=== PATIENT | female | born 1945 | race Caucasian/White ===

== ENCOUNTER 2018-01-22 08:15 | Outpatient (CLI) | payer OTHER ==
[~2018-01-22 08:15] MED LIST: CLOP75TA35 PO; ESTR0.6261 PO; PANT40TA39 PO; RANI300T7 PO
[2018-01-22 08:58] LABS: BASOPHILS % (AUTO) 0.2 % (0-1); EOSINOPHILS # (AUTO) 0.2 X10'3 (0-0.9); HEMATOCRIT 38.4 % (35.0-45.0); HEMOGLOBIN 12.9 g/dl (12.0-16.0); LYMPHOCYTES # (AUTO) 1.2 X10'3 (1.1-4.8); LYMPHOCYTES % (AUTO) 15.3 % (21-51); MEAN CORPUSCULAR HEMOGLOBIN 29.7 PG (27.0-31.0); MEAN CORPUSCULAR HGB CONC 33.7 % (33.0-36.5); MEAN CORPUSCULAR VOLUME 88.1 FL (78-98); MEAN PLATELET VOLUME 8.4 FL (7.4-10.4); MONOCYTES # (AUTO) 0.7 X10'3 (0-0.9); MONOCYTES % (AUTO) 8.9 % (2-12); NEUTROPHILS # (AUTO) 5.8 X10'3 (1.8-7.7); NEUTROPHILS % (AUTO) 72.6 % (42-75); PLATELET COUNT 298 X10'3 (140-440); RED BLOOD COUNT 4.36 X10'6 (4.20-5.60); RED CELL DISTRIBUTION WIDTH 13.7 % (11.5-14.5)
[2018-01-22 09:21] LABS: ALANINE AMINOTRANSFERASE 23 U/L (12-78); ALBUMIN 3.7 G/DL (3.4-5.0); ALBUMIN/GLOBULIN RATIO 1.1 (1.1-1.5); ALKALINE PHOSPHATASE 92 IU/L (46-116); ANION GAP 9 (8-16); ASPARTATE AMINO TRANSFERASE 22 U/L (10-37); BILIRUBIN,TOTAL 0.5 MG/DL (0.1-1.0); BLOOD UREA NITROGEN 16 MG/DL (7-18); BUN/CREATININE RATIO 21.9 (6.6-38.0); CHLORIDE 101 MMOL/L (99-107); CHOL/HDL RATIO 2.5 (0.00-4.99); CHOLESTEROL 228 MG/DL (0-200); CREATININE 0.73 MG/DL (0.40-0.90); GLUCOSE 90 MG/DL (70-104); HDL CHOLESTEROL 91 MG/DL (35-60); LDL CHOLESTEROL 112 MG/DL (50-100); SODIUM 139 MMOL/L (135-145); TOTAL CARBON DIOXIDE 28.7 MMOL/L (24-32); TOTAL PROTEIN 7.1 G/DL (6.4-8.2); TRIGLYCERIDES 115 MG/DL (20-135); eGFR 79 ML/MIN
== END 2018-01-22 23:59 | disposition home or self-care (01) ==
LOC: LAB 08:15
PROVIDERS: ATTEND Nurse Practitioner Family
DX: Z00.01 Encounter for general adult medical examination with abnormal findings (principal); J44.9 Chronic obstructive pulmonary disease, unspecified; R79.89 Other specified abnormal findings of blood chemistry
CPT/HCPCS: 36415; 80053; 80061; 84436; 84443; 85025

== ENCOUNTER 2019-06-09 09:42 | Outpatient (CLI) | payer OTHER | END 2019-06-09 23:59 | disposition home or self-care (01) | LOC: VAS 09:42 | PROVIDERS: ATTEND Family Medicine | DX: I65.23 Occlusion and stenosis of bilateral carotid arteries (principal); I77.3 Arterial fibromuscular dysplasia; J44.9 Chronic obstructive pulmonary disease, unspecified; Z82.49 Family history of ischemic heart disease and other diseases of the circulatory system | CPT/HCPCS: 93880; 93975; 93978 ==

== ENCOUNTER 2020-03-17 14:53 | Outpatient (CLI) | payer BC ==
[2020-03-17 15:59] LABS: BASOPHILS % (AUTO) 0.3 % (0-1); EOSINOPHILS # (AUTO) 0.3 X10'3 (0-0.9); EOSINOPHILS % (AUTO) 2.9 % (0-6); HEMATOCRIT 35.9 % (35.0-45.0); LYMPHOCYTES # (AUTO) 1.5 X10'3 (1.1-4.8); LYMPHOCYTES % (AUTO) 15.4 % (21-51); MEAN CORPUSCULAR HEMOGLOBIN 30.1 PG (27.0-31.0); MEAN CORPUSCULAR HGB CONC 33.3 g/dL (33.0-36.5); MEAN CORPUSCULAR VOLUME 90.5 FL (78-98); MEAN PLATELET VOLUME 8.3 FL (7.4-10.4); MONOCYTES # (AUTO) 0.9 X10'3 (0-0.9); MONOCYTES % (AUTO) 9.1 % (2-12); NEUTROPHILS # (AUTO) 7.1 X10'3 (1.8-7.7); NEUTROPHILS % (AUTO) 72.3 % (42-75); PLATELET COUNT 290 X10'3 (140-440); RED BLOOD COUNT 3.97 X10'6 (4.20-5.60); RED CELL DISTRIBUTION WIDTH 13.8 % (11.5-14.5); WHITE BLOOD COUNT 9.8 X10'3 (4.5-11.0)
[2020-03-17 16:45] LABS: ALANINE AMINOTRANSFERASE 16 U/L (12-78); ALBUMIN 3.3 G/DL (3.4-5.0); ALKALINE PHOSPHATASE 94 IU/L (46-116); ANION GAP 6 (8-16); ASPARTATE AMINO TRANSFERASE 20 U/L (10-37); BILIRUBIN,TOTAL 0.3 MG/DL (0.1-1.0); BLOOD UREA NITROGEN 14 MG/DL (7-18); BUN/CREATININE RATIO 17.1 (6.6-38.0); C-REACTIVE PROTEIN 1.35 MG/DL (0.0-0.5); CALCIUM 8.8 MG/DL (8.5-10.1); CHLORIDE 100 MMOL/L (99-107); CHOL/HDL RATIO 2.3 (0.00-4.99); CHOLESTEROL 195 MG/DL (0-200); CREATININE 0.82 MG/DL (0.40-0.90); GLUCOSE 88 MG/DL (70-104); HDL CHOLESTEROL 83 MG/DL (35-60); LDL CHOLESTEROL 89 MG/DL (50-100); POTASSIUM 4.5 MMOL/L (3.5-5.1); SODIUM 136 MMOL/L (135-145); TOTAL CARBON DIOXIDE 30.5 MMOL/L (24-32); TOTAL PROTEIN 6.6 G/DL (6.4-8.2); TRIGLYCERIDES 89 MG/DL (20-135); eGFR 69 ML/MIN
== END 2020-03-17 23:59 | disposition home or self-care (01) ==
LOC: RAD 14:53
PROVIDERS: ATTEND Family Medicine
DX: M10.9 Gout, unspecified (principal)
CPT/HCPCS: 36415; 73620; 80053; 80061; 84550; 85025; 85651; 86140

== ENCOUNTER 2020-10-25 08:38 | Day surgery (SDC) | payer BC ==
[~2020-10-25] VITALS: Ht 165.1 cm; Wt 45.5 kg
[~2020-10-25 08:38] MED LIST changes: +CIPR250T4 PO; +CLOP75TA15 PO; +CLOP75TA34 PO; -CLOP75TA35 PO; +ESOM40CA43 PO; +ESTR0.6216 PO; +LACT1CAP26 PO; +MAGN400O6 PO; +POLY17PO59 PO
[2020-10-25 08:47] VITALS: BP 133/63
[2020-10-25] MEDS ORDERED: ESOM40CA49 PO (08:57)
[2020-10-25] MEDS ORDERED: fentaNYL/PF 50MCG/1 ML 2ML syringe ONE (09:00)
[2020-10-25] MEDS ORDERED: MIDAZolam 1 MG/ML 5ML VIAL ONE (09:01)
[2020-10-25] MEDS ORDERED: LIDOcaine Viscous 15ml cup ONE (09:01)
[2020-10-25 10:08] VITALS: BP 125/58
[2020-10-25 10:18] VITALS: BP 119/68
[2020-10-25 10:28] VITALS: BP 124/66
[2020-10-25 10:38] VITALS: BP 129/71
== END 2020-10-25 10:50 | disposition home or self-care (01) ==
LOC: GI LAB 08:38
PROVIDERS: ATTEND Internal Medicine Gastroenterology
DX: R10.32 Left lower quadrant pain (principal); K57.30 Diverticulosis of large intestine without perforation or abscess without bleeding; K29.70 Gastritis, unspecified, without bleeding; K31.7 Polyp of stomach and duodenum; Z86.010 Personal history of colon polyps
CPT/HCPCS: 43239; 45378; 99152; 99153; C1769; J2250; J3010; J7040; A4620

== ENCOUNTER 2021-05-23 16:13 | Inpatient (IN) | payer BC, MEDICARE ==
[~2021-05-23] VITALS: Ht 165.1 cm; Wt 45.5 kg
[~2021-05-23 16:13] MED LIST changes: -CIPR250T4 PO; -CLOP75TA15 PO; -ESOM40CA43 PO; +ESOM40CA49 PO; -ESTR0.6216 PO; -LACT1CAP26 PO; -MAGN400O6 PO; -PANT40TA39 PO; -POLY17PO59 PO; -RANI300T7 PO
[2021-05-23 17:06] LABS: BASOPHILS % (AUTO) 0.2 % (0-1); EOSINOPHILS # (AUTO) 0.2 X10'3 (0-0.9); EOSINOPHILS % (AUTO) 1.5 % (0-6); HEMATOCRIT 39.7 % (35.0-45.0); HEMOGLOBIN 13.1 g/dl (12.0-16.0); LYMPHOCYTES # (AUTO) 1.3 X10'3 (1.1-4.8); LYMPHOCYTES % (AUTO) 11.1 % (21-51); MEAN CORPUSCULAR HEMOGLOBIN 29.2 PG (27.0-31.0); MEAN CORPUSCULAR VOLUME 88.6 FL (78-98); MEAN PLATELET VOLUME 8.6 FL (7.4-10.4); MONOCYTES # (AUTO) 1.6 X10'3 (0-0.9); MONOCYTES % (AUTO) 13.7 % (2-12); NEUTROPHILS # (AUTO) 8.3 X10'3 (1.8-7.7); NEUTROPHILS % (AUTO) 73.5 % (42-75); PLATELET COUNT 346 X10'3 (140-440); RED BLOOD COUNT 4.48 X10'6 (4.20-5.60); RED CELL DISTRIBUTION WIDTH 13.6 % (11.5-14.5); WHITE BLOOD COUNT 11.3 X10'3 (4.5-11.0)
[2021-05-23 17:07] LABS: ALANINE AMINOTRANSFERASE 42 U/L (12-78); ALBUMIN 3.4 G/DL (3.4-5.0); ALBUMIN/GLOBULIN RATIO 0.9 (1.1-1.5); ALKALINE PHOSPHATASE 126 IU/L (46-116); ANION GAP 10 (8-16); ASPARTATE AMINO TRANSFERASE 46 U/L (10-37); BILIRUBIN,TOTAL 0.3 MG/DL (0.1-1.0); BLOOD UREA NITROGEN 14 MG/DL (7-18); BUN/CREATININE RATIO 16.7 (6.6-38.0); CALCIUM 8.4 MG/DL (8.5-10.1); CHLORIDE 97 MMOL/L (99-107); CREATININE 0.84 MG/DL (0.40-0.90); GLUCOSE 106 MG/DL (70-104); POTASSIUM 4.1 MMOL/L (3.5-5.1); SODIUM 135 MMOL/L (135-145); TOTAL CARBON DIOXIDE 27.6 MMOL/L (24-32); eGFR 66 ML/MIN
[2021-05-23] MEDS ORDERED: heparin 10,000 units/1 ML INJ IV PRN (18:00)
[2021-05-23] MEDS ORDERED: aspirin 81mg tab.chew PO ONE (18:00)
[2021-05-23] MEDS ORDERED: heparin 10,000 units/1 ML INJ IV ONE ×2 (18:00→18:10)
[2021-05-23] MEDS ORDERED: metoprolol tartrate 1mg/ml inj IV ONE (18:00)
[2021-05-23] MEDS ORDERED: heparin 25,000 UNIT/250ml bag 250 ML IV SCH (18:00)
[2021-05-23 18:16] LABS: PARTIAL THROMBOPLASTIN TIME 29 SECONDS (22-32)
[2021-05-23] MEDS ORDERED: ondansetron/PF 4mg/2ml inj IV PRN (18:35)
[2021-05-23] MEDS ORDERED: magnesium 2GM in 50ml NS 50 ML IV PRN (18:35)
[2021-05-23] MEDS ORDERED: magnesium 4gm in 100ml NS 100 ML IV PRN (18:35)
[2021-05-23] MEDS ORDERED: potassium Cl 20 mEq SR tablet PO PRN ×2 (18:35)
[2021-05-23] MEDS ORDERED: magnesium Cl slow-release 64mg tablet PO PRN (18:35)
[2021-05-23] MEDS ORDERED: potassium Cl 40MEQ/1/2NS 520ml 520 ML IV PRN ×2 (18:35)
--- NOTE | 2021-05-23 19:30 | NUR ---
Received report from WHITNEY Jenkins from ED.
[2021-05-23 20:00] VITALS: BP 159/69
[2021-05-23] MEDS: K and/or MAG REPLACEMENT MC SCH (20:00)
--- NOTE | 2021-05-23 20:00 | NUR ---
Pt refused 2 RN skin check and MRSA swab
[2021-05-23 22:00] VITALS: BP 127/64
--- NOTE | 2021-05-23 22:30 | NUR ---
Dr Gagnon Called to order Sotolol 40mg PO now once Sotolol 40mg PO BID--HOLD AM DOSE ON 05/24 FOR HEART CATH NPO @ midnight EKG for AM prior to laboratory technologist Echo for AM prior to laboratory technologist Lipid Panel for AM lab
[2021-05-23] MEDS ORDERED: sotalol 80mg tablet PO ONE (23:00)
[2021-05-24] VITALS (10 sets, daily range): BP systolic 100–136; BP diastolic 46–70
[2021-05-24] MEDS ORDERED: pantoprazole 40mg Tablet.DR PO PRN (00:05)
[2021-05-24 00:49] LABS: BASOPHILS % (AUTO) 0.1 % (0-1); EOSINOPHILS # (AUTO) 0.2 X10'3 (0-0.9); EOSINOPHILS % (AUTO) 2.2 % (0-6); HEMATOCRIT 37.4 % (35.0-45.0); HEMOGLOBIN 12.6 g/dl (12.0-16.0); LYMPHOCYTES % (AUTO) 18.8 % (21-51); MEAN CORPUSCULAR HEMOGLOBIN 29.8 PG (27.0-31.0); MEAN CORPUSCULAR HGB CONC 33.6 g/dL (33.0-36.5); MEAN CORPUSCULAR VOLUME 88.8 FL (78-98); MEAN PLATELET VOLUME 8.4 FL (7.4-10.4); MONOCYTES # (AUTO) 1.2 X10'3 (0-0.9); MONOCYTES % (AUTO) 11.3 % (2-12); NEUTROPHILS # (AUTO) 7.3 X10'3 (1.8-7.7); NEUTROPHILS % (AUTO) 67.6 % (42-75); PLATELET COUNT 299 X10'3 (140-440); RED BLOOD COUNT 4.21 X10'6 (4.20-5.60); RED CELL DISTRIBUTION WIDTH 13.6 % (11.5-14.5); WHITE BLOOD COUNT 10.8 X10'3 (4.5-11.0)
--- NOTE | 2021-05-24 01:39 | NUR ---
Med error occurred-Pt was given 80mg of Sotolol PO instead of the 40mg ordered by Dr Gagnon. Standard dose was 80mg on the order platform, and the dose ordered by the Dr was not changed. Called automation engineering manager hospitalist Dr Hammer who said to call Dr Gagnon. Current vital signs: HR 83 BP 119/57. Will continue to monitor QH. Paged Dr Gagnon, telephone installer aware, will continue to monitor
[2021-05-24 01:50] LABS: ANION GAP 10 (8-16); BLOOD UREA NITROGEN 10 MG/DL (7-18); BUN/CREATININE RATIO 15.6 (6.6-38.0); CALCIUM 8.1 MG/DL (8.5-10.1); CHLORIDE 102 MMOL/L (99-107); CREATININE 0.64 MG/DL (0.40-0.90); GLUCOSE 114 MG/DL (70-104); MAGNESIUM 2.1 MG/DL (1.5-2.4); POTASSIUM 3.9 MMOL/L (3.5-5.1); SODIUM 140 MMOL/L (135-145); TOTAL CARBON DIOXIDE 28.2 MMOL/L (24-32); eGFR > 90 ML/MIN
[2021-05-24 05:02] LABS: CHOL/HDL RATIO 2.4 (0.00-4.99); CHOLESTEROL 190 MG/DL (0-200); HDL CHOLESTEROL 79 MG/DL (35-60); LDL CHOLESTEROL 93 MG/DL (50-100); TRIGLYCERIDES 84 MG/DL (20-135)
--- NOTE | 2021-05-24 06:36 | NUR ---
Patient in room PCU 3022. I have received report from WHITNEY Frost and had the opportunity to ask questions and assume patient care.
--- NOTE | 2021-05-24 07:04 | NUR ---
Problems reprioritized. Patient bedside report given, questions answered & plan of care reviewed with WHITNEY Tyler.
[2021-05-24] MEDS ORDERED: sotalol 80mg tablet PO SCH (08:00)
[2021-05-24] MEDS: K and/or MAG REPLACEMENT MC SCH ×2 (08:00→19:52)
[2021-05-24] MEDS ORDERED: nitroGLYCERIN-Tridil 50MG/D5W 250 ML IV ONE (13:35)
[2021-05-24] MEDS ORDERED: fentaNYL/PF 50MCG/1 ML 2ML syringe ONE (13:35)
[2021-05-24] MEDS ORDERED: midazolam 1 mg/ML 2ml injection ONE (13:35)
[2021-05-24] MEDS ORDERED: verapamil 2.5 mg/ml inj IV ONE (13:35)
[2021-05-24] MEDS ORDERED: LIDOcaine 1% (10mg/ml)w/preservative injection 20ml MDV ONE (13:35)
[2021-05-24] MEDS ORDERED: heparin 1,000unit/ml 10ml vial 10 ML ONE (13:36)
[2021-05-24] MEDS ORDERED: iohexol 350MG/ML 100ml bottle IV ONE (13:36)
[2021-05-24] MEDS ORDERED: iohexol 350 MG/ML 50ML vial IV ONE (13:36)
--- NOTE | 2021-05-24 13:53 | NUR ---
Most recent cardiac PTT of 43 would net patient bolus and rate increase, however, pt was picked up by seed laboratory technician at 1350, leading to the heparin being stopped at this time, rather than bolused or increased.
[2021-05-24] MEDS: normal saline 1000ml 1,000 ML IV SCH ×2 (15:00→20:03)
[2021-05-24] MEDS ORDERED: ondansetron 4mg rapidly disintigrating tab PO PRN (15:25)
--- NOTE | 2021-05-24 18:18 | NUR ---
Problems reprioritized. Patient report given, questions answered & plan of care reviewed with WHITNEY Maurer.
[2021-05-24] MEDS: sotalol 80mg tablet PO SCH (19:55)
[2021-05-24] MEDS: apixaban 2.5mg tablet PO SCH (19:55)
[2021-05-24] MEDS ORDERED: sotalol 40mg tablet PO SCH (20:00)
[2021-05-25 00:19] VITALS: BP 120/80
[2021-05-25] MEDS: normal saline 1000ml 1,000 ML IV SCH ×2 (03:51→11:00)
[2021-05-25 06:00] VITALS: BP 135/46
[2021-05-25] MEDS ORDERED: acetaminophen 325mg tablet PO PRN (06:30)
[2021-05-25 06:54] LABS: BASOPHILS % (AUTO) 0.2 % (0-1); EOSINOPHILS # (AUTO) 0.2 X10'3 (0-0.9); EOSINOPHILS % (AUTO) 2.4 % (0-6); HEMATOCRIT 32.6 % (35.0-45.0); HEMOGLOBIN 10.6 g/dl (12.0-16.0); LYMPHOCYTES # (AUTO) 1.4 X10'3 (1.1-4.8); LYMPHOCYTES % (AUTO) 16.6 % (21-51); MEAN CORPUSCULAR HEMOGLOBIN 29.2 PG (27.0-31.0); MEAN CORPUSCULAR HGB CONC 32.7 g/dL (33.0-36.5); MEAN CORPUSCULAR VOLUME 89.5 FL (78-98); MEAN PLATELET VOLUME 8.5 FL (7.4-10.4); MONOCYTES # (AUTO) 1.1 X10'3 (0-0.9); MONOCYTES % (AUTO) 12.4 % (2-12); NEUTROPHILS # (AUTO) 5.9 X10'3 (1.8-7.7); NEUTROPHILS % (AUTO) 68.4 % (42-75); PLATELET COUNT 277 X10'3 (140-440); RED BLOOD COUNT 3.64 X10'6 (4.20-5.60); WHITE BLOOD COUNT 8.7 X10'3 (4.5-11.0)
[2021-05-25 07:08] LABS: ALBUMIN 2.6 G/DL (3.4-5.0); ANION GAP 7 (8-16); BLOOD UREA NITROGEN 12 MG/DL (7-18); BUN/CREATININE RATIO 17.1 (6.6-38.0); CALCIUM 7.7 MG/DL (8.5-10.1); CHLORIDE 108 MMOL/L (99-107); GLUCOSE 81 MG/DL (70-104); MAGNESIUM 1.8 MG/DL (1.5-2.4); POTASSIUM 4.1 MMOL/L (3.5-5.1); SODIUM 140 MMOL/L (135-145); TOTAL CARBON DIOXIDE 25.2 MMOL/L (24-32); eGFR 82 ML/MIN
[2021-05-25] MEDS: K and/or MAG REPLACEMENT MC SCH (08:00)
[2021-05-25] MEDS: sotalol 80mg tablet PO SCH (08:01)
[2021-05-25] MEDS: apixaban 2.5mg tablet PO SCH (08:02)
[2021-05-25] MEDS ORDERED: SOTA80TA73 PO (08:42)
[2021-05-25] MEDS ORDERED: APIX2.5T PO (08:42)
[2021-05-25 11:00] VITALS: BP 119/58
--- NOTE | 2021-05-25 14:05 | NUR ---
Pt stable for D/C per MD orders. Pt stable for D/C - PIV's and tele box # 18 removed. Pt tolerated well. Pt was able to get dressed with no assistance. All D/C ppwk was reviewed with patient. New RX was sent to [facility] on [address]. Education provided on new RX. Pt verbalized understanding of all ppwk and does not have any questions at this time. Pt was wheeled out in W/C by nursing staff to private vehicle.
== END 2021-05-25 14:05 | disposition home or self-care (01) | DRG 281 ==
LOC: ER 16:14 → EEVIPCON 16:14 → PCU 3S 18:33
PROVIDERS: ADMIT Internal Medicine; ATTEND Internal Medicine
PROC: 4A023N7 Measurement of Cardiac Sampling and Pressure, Left Heart, Percutaneous Approach (ICD-10-PCS; principal; 2021-05-24)
PROC: B2111ZZ Fluoroscopy of Multiple Coronary Arteries using Low Osmolar Contrast (ICD-10-PCS; 2021-05-24)
PROC: B2151ZZ Fluoroscopy of Left Heart using Low Osmolar Contrast (ICD-10-PCS; 2021-05-24)
DX: I21.4 Non-ST elevation (NSTEMI) myocardial infarction (principal); I48.92 Unspecified atrial flutter; E78.5 Hyperlipidemia, unspecified; I25.10 Atherosclerotic heart disease of native coronary artery without angina pectoris; I48.91 Unspecified atrial fibrillation; K21.9 Gastro-esophageal reflux disease without esophagitis; R00.0 Tachycardia, unspecified; K44.9 Diaphragmatic hernia without obstruction or gangrene; Z60.2 Problems related to living alone; M79.7 Fibromyalgia; Z80.9 Family history of malignant neoplasm, unspecified; Z82.49 Family history of ischemic heart disease and other diseases of the circulatory system; Z90.710 Acquired absence of both cervix and uterus; Z98.82 Breast implant status; Z88.8 Allergy status to other drugs, medicaments and biological substances; Z88.1 Allergy status to other antibiotic agents; Z79.899 Other long term (current) drug therapy
CPT/HCPCS: 36415; 71045; 80048; 80053; 80061; 83735; 83880; 84484; 85025; 85610; 85730; 93005; 93306; 93458; 96374; 96375; 99152; 99153; 99285; A5120; A6258; C1894; G0378; J1644; J2001; J2250; J3010; J3490; J7030; Q9967

== ENCOUNTER 2021-05-27 12:59 | Emergency (ER) | payer BC, MEDICARE ==
[~2021-05-27] VITALS: Ht 165.1 cm; Wt 50.0 kg
[~2021-05-27 12:59] MED LIST changes: +APIX2.5T PO; +SOTA80TA73 PO
[2021-05-27 13:06] VITALS: BP 174/84
[2021-05-27 13:51] LABS: BASOPHILS % (AUTO) 0.2 % (0-1); EOSINOPHILS # (AUTO) 0.1 X10'3 (0-0.9); EOSINOPHILS % (AUTO) 1.2 % (0-6); HEMOGLOBIN 12.3 g/dl (12.0-16.0); LYMPHOCYTES % (AUTO) 9.2 % (21-51); MEAN CORPUSCULAR HEMOGLOBIN 29.4 PG (27.0-31.0); MEAN CORPUSCULAR HGB CONC 32.4 g/dL (33.0-36.5); MEAN CORPUSCULAR VOLUME 90.6 FL (78-98); MONOCYTES # (AUTO) 1.3 X10'3 (0-0.9); MONOCYTES % (AUTO) 11.6 % (2-12); NEUTROPHILS # (AUTO) 8.4 X10'3 (1.8-7.7); NEUTROPHILS % (AUTO) 77.8 % (42-75); PLATELET COUNT 345 X10'3 (140-440); RED CELL DISTRIBUTION WIDTH 13.5 % (11.5-14.5); WHITE BLOOD COUNT 10.8 X10'3 (4.5-11.0)
[2021-05-27 14:05] LABS: PARTIAL THROMBOPLASTIN TIME 26 SECONDS (22-32)
[2021-05-27 14:07] LABS: ALANINE AMINOTRANSFERASE 68 U/L (12-78); ALBUMIN 3.2 G/DL (3.4-5.0); ALBUMIN/GLOBULIN RATIO 0.9 (1.1-1.5); ALKALINE PHOSPHATASE 149 IU/L (46-116); ANION GAP 8 (8-16); ASPARTATE AMINO TRANSFERASE 43 U/L (10-37); BILIRUBIN,TOTAL 0.4 MG/DL (0.1-1.0); BLOOD UREA NITROGEN 9 MG/DL (7-18); BUN/CREATININE RATIO 11.4 (6.6-38.0); CALCIUM 8.2 MG/DL (8.5-10.1); CHLORIDE 100 MMOL/L (99-107); CREATININE 0.79 MG/DL (0.40-0.90); GLUCOSE 170 MG/DL (70-104); POTASSIUM 3.7 MMOL/L (3.5-5.1); SODIUM 137 MMOL/L (135-145); TOTAL CARBON DIOXIDE 29.1 MMOL/L (24-32); TOTAL PROTEIN 6.7 G/DL (6.4-8.2); eGFR 71 ML/MIN
== END 2021-05-27 18:42 | disposition home or self-care (01) ==
LOC: ER 13:00
DX: Z53.21 Procedure and treatment not carried out due to patient leaving prior to being seen by health care provider (principal)
CPT/HCPCS: 36415; 71045; 80053; 84484; 85025; 85610; 85730; 93005; 99285

== ENCOUNTER 2021-06-21 07:00 | Day surgery (SDC) | payer BC, MEDICARE ==
[2021-06-20 12:45] LABS: BASOPHILS % (AUTO) 0.2 % (0-1); EOSINOPHILS # (AUTO) 0.2 X10'3 (0-0.9); EOSINOPHILS % (AUTO) 1.8 % (0-6); HEMATOCRIT 37.6 % (35.0-45.0); HEMOGLOBIN 12.1 g/dl (12.0-16.0); LYMPHOCYTES # (AUTO) 1.1 X10'3 (1.1-4.8); LYMPHOCYTES % (AUTO) 9.6 % (21-51); MEAN CORPUSCULAR HEMOGLOBIN 28.8 PG (27.0-31.0); MEAN CORPUSCULAR HGB CONC 32.2 g/dL (33.0-36.5); MEAN CORPUSCULAR VOLUME 89.7 FL (78-98); MEAN PLATELET VOLUME 8.4 FL (7.4-10.4); MONOCYTES % (AUTO) 8.8 % (2-12); NEUTROPHILS # (AUTO) 9.2 X10'3 (1.8-7.7); NEUTROPHILS % (AUTO) 79.6 % (42-75); PLATELET COUNT 330 X10'3 (140-440); RED BLOOD COUNT 4.19 X10'6 (4.20-5.60); RED CELL DISTRIBUTION WIDTH 13.8 % (11.5-14.5); WHITE BLOOD COUNT 11.5 X10'3 (4.5-11.0)
[2021-06-20 12:59] LABS: ALANINE AMINOTRANSFERASE 37 U/L (12-78); ALBUMIN 3.6 G/DL (3.4-5.0); ALKALINE PHOSPHATASE 137 IU/L (46-116); ANION GAP 9 (8-16); ASPARTATE AMINO TRANSFERASE 27 U/L (10-37); BILIRUBIN,TOTAL 0.5 MG/DL (0.1-1.0); BLOOD UREA NITROGEN 19 MG/DL (7-18); BUN/CREATININE RATIO 26.4 (6.6-38.0); CALCIUM 8.7 MG/DL (8.5-10.1); CHLORIDE 102 MMOL/L (99-107); CREATININE 0.72 MG/DL (0.40-0.90); GLUCOSE 92 MG/DL (70-104); POTASSIUM 4.4 MMOL/L (3.5-5.1); SODIUM 139 MMOL/L (135-145); TOTAL CARBON DIOXIDE 27.7 MMOL/L (24-32); TOTAL PROTEIN 7.1 G/DL (6.4-8.2); eGFR 79 ML/MIN
[2021-06-21] VITALS (14 sets, daily range): BP systolic 124–174; BP diastolic 50–73
[~2021-06-21] VITALS: Ht 165.1 cm; Wt 46.2 kg
[2021-06-21] MEDS ORDERED: LORazepam 0.5 MG tablet PO ONE (07:25)
[2021-06-21] MEDS ORDERED: MIDAZolam 1mg/ml 10ml vial IV ONE (07:25)
[2021-06-21] MEDS ORDERED: diphenhydrAMINE 25mg capsule PO ONE (07:25)
[2021-06-21] MEDS ORDERED: amiodarone 150mg/dext, iso-os 100 ML IV ONE (07:25)
[2021-06-21] MEDS ORDERED: morphine 10mg/ml inj. IV ONE (07:25)
[2021-06-21] MEDS ORDERED: atropine 0.1mg/ml 10ml syringe IV ONE (07:25)
[2021-06-21] MEDS ORDERED: normal saline 1000ml 1,000 ML IV SCH (07:25)
[2021-06-21] MEDS ORDERED: CARV3.12 PO (08:17)
[2021-06-21] MEDS ORDERED: FLEC50TA28 PO (08:17)
[2021-06-21] MEDS ORDERED: APIX5TAB3 PO (08:17)
== END 2021-06-21 11:10 | disposition home or self-care (01) ==
LOC: SSTAY O 07:00
PROVIDERS: ATTEND Internal Medicine Cardiovascular Disease
DX: I48.91 Unspecified atrial fibrillation (principal); I48.92 Unspecified atrial flutter; I25.10 Atherosclerotic heart disease of native coronary artery without angina pectoris; E78.5 Hyperlipidemia, unspecified; I65.23 Occlusion and stenosis of bilateral carotid arteries; I77.3 Arterial fibromuscular dysplasia; Z86.73 Personal history of transient ischemic attack (TIA), and cerebral infarction without residual deficits; Z79.899 Other long term (current) drug therapy; Z79.01 Long term (current) use of anticoagulants; Z90.710 Acquired absence of both cervix and uterus; Z98.890 Other specified postprocedural states; Z88.1 Allergy status to other antibiotic agents; Z88.8 Allergy status to other drugs, medicaments and biological substances; Z82.3 Family history of stroke; Z80.9 Family history of malignant neoplasm, unspecified
CPT/HCPCS: 36415; 80053; 85025; 85610; 92960; 93005; 94760; 94799; J2250; J2270

== ENCOUNTER 2023-04-17 12:32 | Outpatient (CLI) | payer MEDICARE, OTHER ==
[~2023-04-17 12:32] MED LIST changes: -APIX2.5T PO; +APIX5TAB3 PO; +CARV-49 PO; -CLOP75TA34 PO; -SOTA80TA73 PO
[2023-04-17 13:22] LABS: BASOPHILS % (AUTO) 0.3 % (0-1); EOSINOPHILS # (AUTO) 0.2 X10'3 (0-0.9); EOSINOPHILS % (AUTO) 1.9 % (0-6); HEMATOCRIT 43.2 % (35.0-45.0); LYMPHOCYTES # (AUTO) 1.1 X10'3 (1.1-4.8); LYMPHOCYTES % (AUTO) 11.9 % (21-51); MEAN CORPUSCULAR HEMOGLOBIN 28.6 PG (27.0-31.0); MEAN CORPUSCULAR HGB CONC 32.5 g/dL (33.0-36.5); MEAN CORPUSCULAR VOLUME 88.1 FL (78-98); MEAN PLATELET VOLUME 8.4 FL (7.4-10.4); MONOCYTES # (AUTO) 0.9 X10'3 (0-0.9); MONOCYTES % (AUTO) 9.3 % (2-12); NEUTROPHILS # (AUTO) 7.3 X10'3 (1.8-7.7); NEUTROPHILS % (AUTO) 76.6 % (42-75); PLATELET COUNT 314 X10'3 (140-440); RED CELL DISTRIBUTION WIDTH 14.8 % (11.5-14.5); WHITE BLOOD COUNT 9.5 X10'3 (4.5-11.0)
[2023-04-17 13:42] LABS: ALANINE AMINOTRANSFERASE 28 U/L (12-78); ALBUMIN/GLOBULIN RATIO 1.2 (1.1-1.5); ALKALINE PHOSPHATASE 128 IU/L (46-116); ANION GAP 4 (8-16); ASPARTATE AMINO TRANSFERASE 31 U/L (10-37); BILIRUBIN,TOTAL 0.6 MG/DL (0.1-1.0); BLOOD UREA NITROGEN 20 MG/DL (7-18); BUN/CREATININE RATIO 24.4 (10.0-20.0); C-REACTIVE PROTEIN 0.07 MG/DL (0.0-0.5); CALCIUM 9.1 MG/DL (8.5-10.1); CHLORIDE 98 MMOL/L (99-107); CREATININE 0.82 MG/DL (0.40-0.90); GLUCOSE 93 MG/DL (70-104); POTASSIUM 4.3 MMOL/L (3.5-5.1); PRO BRAIN NATRIURETIC PEPTIDE 2282 PG/ML (0-450); SODIUM 134 MMOL/L (135-145); TOTAL CARBON DIOXIDE 31.6 MMOL/L (24-32); TOTAL PROTEIN 7.4 G/DL (6.4-8.2); eGFR 68 ML/MIN
== END 2023-04-17 23:59 | disposition home or self-care (01) ==
LOC: LAB 12:32
PROVIDERS: ATTEND Family Medicine
DX: I50.41 Acute combined systolic (congestive) and diastolic (congestive) heart failure (principal); I77.3 Arterial fibromuscular dysplasia; J90 Pleural effusion, not elsewhere classified; I10 Essential (primary) hypertension; I48.0 Paroxysmal atrial fibrillation; R79.89 Other specified abnormal findings of blood chemistry; J98.4 Other disorders of lung; Z98.82 Breast implant status
CPT/HCPCS: 36415; 71046; 80053; 83880; 85025; 85651; 86140

== ENCOUNTER 2025-04-06 10:27 | Outpatient (CLI) | payer MEDICARE, OTHER ==
[2025-04-06 11:12] LABS: MEAN PLATELET VOLUME 8.2 FL (7.4-10.4); RED CELL DISTRIBUTION WIDTH 13.8 % (11.5-14.5)
[2025-04-06 11:43] LABS: CREATININE 0.72 MG/DL (0.40-0.90); LDL CHOLESTEROL 107 MG/DL (50-100); TOTAL CARBON DIOXIDE 33.1 MMOL/L (24-32); eGFR 79 ML/MIN
[2025-04-06 11:55] LABS: CHOL/HDL RATIO 2.8 (0.00-4.99)
== END 2025-04-06 23:59 | disposition home or self-care (01) ==
LOC: RAD 10:27
PROVIDERS: ATTEND Physician Assistant
DX: E55.9 Vitamin D deficiency, unspecified (principal); E78.5 Hyperlipidemia, unspecified; R53.83 Other fatigue; E87.1 Hypo-osmolality and hyponatremia; Z13.29 Encounter for screening for other suspected endocrine disorder; R73.9 Hyperglycemia, unspecified; E53.8 Deficiency of other specified B group vitamins
CPT/HCPCS: 36415; 80053; 80061; 82306; 82607; 82746; 83036; 84436; 84443; 85025

== ENCOUNTER 2025-07-20 11:11 | Outpatient (CLI) | payer MEDICARE, OTHER | END 2025-07-20 23:59 | disposition home or self-care (01) | LOC: LAB 11:11 | PROVIDERS: ATTEND Physician Assistant | DX: E55.9 Vitamin D deficiency, unspecified (principal) | CPT/HCPCS: 36415; 82306 ==